=== PATIENT | male | born 1955 | race Two or more races ===

== ENCOUNTER 2019-02-27 10:53 | Outpatient (RCR) | payer MEDICARE, MEDICAID | END 2019-03-14 | disposition home or self-care (01) | LOC: WCC 10:53 | DX: L97.513 Non-pressure chronic ulcer of other part of right foot with necrosis of muscle (principal); E11.621 Type 2 diabetes mellitus with foot ulcer; Z79.82 Long term (current) use of aspirin; Z79.899 Other long term (current) drug therapy; E11.22 Type 2 diabetes mellitus with diabetic chronic kidney disease; N18.6 End stage renal disease; Z99.2 Dependence on renal dialysis; Z95.0 Presence of cardiac pacemaker; Z89.512 Acquired absence of left leg below knee; F17.200 Nicotine dependence, unspecified, uncomplicated | CPT/HCPCS: 82962; G0277; G0463 ==

== ENCOUNTER 2019-02-27 12:40 | Outpatient (CLI) | payer MEDICARE, MEDICAID ==
--- NOTE | 2019-02-27 14:53 | Diagnostic Imaging Report ---
Indication: Cough Technique: One view of the chest Comparison: 03/25/2009 Findings: Bands of atelectasis or scarring are seen in the left lateral lung base. The lungs and pleural spaces are otherwise clear. The heart is upper limits of normal in size. No significant interim change Impression: No acute process
== END 2019-02-27 14:40 | disposition home or self-care (01) ==
LOC: RAD 12:40
DX: R05 Cough (principal)
CPT/HCPCS: 71045